=== PATIENT | female | born 1980 | race Hispanic/Latino ===

== ENCOUNTER 2017-09-10 22:51 | Emergency (ER) | payer BC, OTHER ==
[~2017-09-10] VITALS: Ht 162.6 cm; Wt 75.4 kg
[2017-09-10] MEDS ORDERED: KETOROLAC TROMETHAMINE 30 MG/ML VIAL IV STA (23:07)
[2017-09-10] MEDS ORDERED: ONDANSETRON HCL INJ 2 MG/ML VIAL IV STA (23:11)
[2017-09-10] MEDS ORDERED: FENTANYL CITRATE/PF 100MCG/2 ML INJ IV ONE (23:15)
[2017-09-10] MEDS ORDERED: SODIUM CHLORIDE 0.9% 1000ML 1,000 ML IV SCH (23:15)
[2017-09-11] MEDS ORDERED: HYDROCODONE/APAP 5MG-325MG TAB PO ONE (01:30)
[2017-09-11 01:32] VITALS: BP 120/78
== END 2017-09-11 02:01 | disposition home or self-care (01) ==
LOC: FSED 22:51
DX: R10.31 Right lower quadrant pain (principal); R11.0 Nausea; K52.9 Noninfective gastroenteritis and colitis, unspecified
CPT/HCPCS: 74178; 80053; 81003; 85025; 96374; 96375; 96376; 99284; J1885; J2405

== ENCOUNTER 2018-05-29 20:06 | Emergency (ER) | payer BC, OTHER ==
[~2018-05-29] VITALS: Ht 162.6 cm; Wt 72.6 kg
--- OUTSIDE RECORDS SUMMARY | 2018-05-29 20:09 | XMS REPORT | Continuity of Care Document ---
Author Author [facility] Interface Address Unknown Phone Unavailable Problems Problem Status Onset Date Classification Date Reported Comments Source Medications Medication Details Route Status Patient Instructions Ordering Provider Order Date Source Allergies, Adverse Reactions, Alerts Substance Category Reaction Severity Reaction type Status Date Reported Comments Source Morphine Skin Rash/Hives Intermediate Allergy to Substance Active 05/26/2015 [facility] Immunizations Immunization Date Given Site Status Last Updated Comments Source Results Order Name Results Value Reference Range Date Interpretation Comments Source Vital Signs Vital Sign Value Date Comments Source Encounters Location Location Details Encounter Type Encounter Number Reason For Visit Attending Provider ADM Date DC Date Status Source Departed Emergency Room [id number] BLANCA CHRISTIAN MD 09/10/2017 09/11/2017 [facility] Departed Emergency Room [id number] KACIE AYALA MD 12/11/2017 12/11/2017 [facility] Procedures Procedure Code Date Perfomer Comments Source
--- OUTSIDE RECORDS SUMMARY | 2018-05-29 20:09 | XMS REPORT ---
Author [facility] Address Unknown Phone Unavailable Care Team Providers Care Monotype Caster Name Role Phone Megan AYALA Unavailable Unavailable Payers Payer Name Policy Type Policy Number Effective Date Expiration Date Problems This patient has no known problems. Allergies, Adverse Reactions, Alerts Allergy Name Allergy Type Status Severity Reaction(s) Onset Date Inactive Date Treating Clinician Comments No Known Allergies DA Active U 2018-01-20 00:00:00 morphine DA Active SV 2016-08-07 00:00:00 Medications This patient has no known medications. Results Test Description Test Time Test Comments Text Results Atomic Results Result Comments CT ABD/PEL WO CONTRAST-HOPD 2017-12-11 17:36:00 [place] [address] Patient Name: NEDRA CARRASQUILLO MR #: [id number] : 1980 Age/Sex: 36/F Req #: [id number] Adm Physician: Ordered by: KACIE AYALA MD Report #: [id number] Location: [facility] Room/Bed: Procedure: HOPD/CT ABD/PEL WO CONTRAST- HOPD Exam Date: 12/11/17 Exam Time: 1739 REPORT STATUS: Signed EXAMINATION: CT of the abdomen and pelvis without contrast. TECHNIQUE: Helical CT images of the abdomen and pelvis were performed from the lung bases to the lesser trochanters. No intravenous contrast was given per protocol. Coronal and sagittal reformatted images were obtained. Dose modulation, iterative reconstruction, and/or weight based adjustment of the mA/kV was utilized to reduce the radiation dose to as low as reasonably achievable. COMPARISON: None. CLINICAL HISTORY:Nausea and vomiting DISCUSSION: ABSENCE OF INTRAVENOUS CONTRAST DECREASES SENSITIVITY FOR DETECTION OF FOCAL LESIONS AND VASCULAR PATHOLOGY. ABDOMEN/PELVIS: LOWER THORAX: Unremarkable. HEPATOBILIARY:No focal hepatic lesions. No ductal dilatation. Cholecystectomy. SPLEEN: No splenomegaly. PANCREAS: No focal masses or ductal dilatation. ADRENALS: No adrenal nodules. KIDNEYS/URETERS: Punctate renal calculi in the inferior left kidney. Hyperdense papilla. PELVIC ORGANS/BLADDER: Bladder is decompressed. Partial hysterectomy. PERITONEUM/RETROPERITONEUM: No free air or fluid. LYMPH NODES: No intra-abdominal,retroperitoneal, pelvic or inguinal lymphadenopathy. VESSELS: Evaluation. GI TRACT: Prior gastric bypass. No distention or wall thickening. Appendix is normal. BONES AND SOFT TISSUES: No bony destructive lesions. No soft tissue abn ormalities. IMPRESSION: No acute CT finding. Punctate left renal calculi, nonobstructing. Postsurgical change from gastric bypass, cholecystectomy, and partial hysterectomy. Signed by: Dr. Fortino Rosas M.D. on 12/11/2017 5:40 PM Dictated By: FORTINO ROSAS MD 39 Transcribed By: BRADEN on 12/11/171739 COPY TO: KACIE AYALA MD
[2018-05-29] MEDS ORDERED: SODIUM CHLORIDE 0.9% 1000ML 1,000 ML IV SCH (20:30)
[2018-05-29] MEDS ORDERED: ONDANSETRON HCL INJ 2MG/ML 2ML 2 MG/ML VIAL IV ONE (21:00)
[2018-05-29] MEDS ORDERED: KETOROLAC TROMETHAMINE 30 MG/ML VIAL IV ONE (21:00)
[2018-05-29] MEDS ORDERED: DIPHENHYDRAMINE HCL INJ 50 MG/ML VIAL IV ONE (21:30)
--- NOTE | 2018-05-29 21:32 | NUR ---
PT NOTED TO HAVE RED RAISED RASH AROUND IV SITE AFTER ZOFRAN ADMIN; NEW ORDERS FOR BENADRYL IV PER ER MD
[2018-05-29] MEDS ORDERED: POTASSIUM CHLORIDE 40 MEQ in SODIUM CHLORIDE 0.9% 1000ML 1,000 ML IV SCH (22:00)
[2018-05-30] MEDS ORDERED: POTASSIUM CHLORIDE 20 MEQ TAB CR PO STA (00:05)
[2018-05-30 00:20] VITALS: BP 124/73
== END 2018-05-30 00:30 | disposition home or self-care (01) ==
LOC: FSED 20:06
DX: R11.2 Nausea with vomiting, unspecified (principal); B34.9 Viral infection, unspecified; K52.9 Noninfective gastroenteritis and colitis, unspecified
CPT/HCPCS: 80053; 81003; 81025; 85025; 87400; 99284; J1200; J1885; J2405; J3480; J7030

== ENCOUNTER 2018-11-20 14:36 | Emergency (ER) | payer OTHER ==
[~2018-11-20] VITALS: Ht 162.6 cm; Wt 72.6 kg
--- OUTSIDE RECORDS SUMMARY | 2018-11-20 14:39 | XMS REPORT | Continuity of Care Document ---
Author Author [facility] Address Unknown Phone Unavailable Care Team Providers Care Elementary Instructional Coach Name Role Phone [employer] Unavailable Unavailable Problems No Data Provided for This Section Medications No Data Provided for This Section Allergies, Adverse Reactions, Alerts Substance Category Reaction Severity Reaction type Status Date Reported Comments Source Morphine Skin Rash/Hives Intermediate Allergy to Substance Active 05/26/2015 [facility] Immunizations No Data Provided for This Section Results No Data Provided for This Section Pathology Reports No Data Provided for This Section Diagnostic Reports No Data Provided for This Section Consultation Notes No Data Provided for This Section Discharge Summaries No Data Provided for This Section History and Physicals No Data Provided for This Section Vital Signs No Data Provided for This Section Encounters Location Location Details Encounter Type Encounter Number Reason For Visit Attending Provider ADM Date DC Date Status Source Departed Emergency Room [id number] BLANCA CHRISTIAN MD 09/10/2017 09/11/2017 [facility] Departed Emergency Room [id number] KACIE AYALA MD 12/11/2017 12/11/2017 [facility] Departed Emergency Room [id number] APRIL CAMERON MD 05/29/2018 05/30/2018 [facility] Procedures No Data Provided for This Section Assessment and Plan No Data Provided for This Section Plan of Care Plan of Care Date Source Discharge Date 05/30/18 12:30am Disposition HOME, SELF-CARE Condition at Discharge Stable Instructions/Education Provided Viral Syndrome - Adult Forms Provided Work/School Excuse Prescriptions See Medication Section Referrals LIBERTY SHEN MD Address: [address] [place] [id number] Additional Instructions/Education REST; TAKE MEDICATION PRESCRIBED; FOLLOW UP WITH YOUR PCP; DRINK PLENTY OF WATER; 05/30/2018 [facility] Discharge Date 12/11/17 6:08pm Disposition HOME, SELF-CARE Condition at Discharge Stable Instructions/Education Provided Vomiting - Adult Forms Provided Work/School Excuse Prescriptions See Medication Section Referrals LIBERTY SHEN MD Address: [address] [place] [address] [address] [place] [address] Additional Instructions/Education DISCHARGE INSTRUCTIONS No strenuous activity for two days. Drink plenty of fluids. Take clear liquids only. Warnings: GENERAL WARNINGS: Return or contact your physician immediately if your condition worsens or changes unexpectedly, if not improving as expected, or if other problems arise. SPECIFICALLY, return for continued pain in the abdomen or vomiting; or if there is no improvement in the pain in the abdomen or vomiting. Prescription Medications: Zofran (orally disintegrating tablets) 4 mg: take 1 orally every 6 hours as needed for nausea and vomiting. Dispense thirty (30). No refill. Pepcid 40 mg: take 1 orally at bedtime. Dispense twenty (20). No refills. Bentyl 10 mg capsules: take 1 orally every 6 hours as needed for abdominal cramps or abdominal discomfort. Dispense thirty (30). No refill. Tylenol with Codeine Tylenol #3 (30 mg / 300 mg) : take 1 tablet orally every 6 hours as needed for acute pain. Dispense thirty (30). No refill. (max daily dose=) . Promethazine Tablets 25 mg: take 1 tablet orally every 6 hours as needed for nausea and vomiting. Dispense thirty (30). No refill. Follow-up: Follow up with doctor in two days if not better. Call for an appointment. Understanding of the discharge instructions verbalized by patient and family. 12/11/2017 [facility] Social History Social History Date Source Smoking Status Start Date Stop Date Never Smoker 05/30/2018 [facility] Family History No Data Provided for This Section Advance Directives Order Name Results Value Date Source Advance Directives Advance Directives Directive Response Recorded Date/Time Does the patient have an advance directive? No 05/26/15 3:54am Do you have a Directive to Physician? No 05/30/18 12:32am Do you have a Medical Power of Cover Making Machine Operator? No 05/30/18 12:32am Do you have an out of hospital Do Not Resuscitate Order? No 05/30/18 12:32am Do you have any special needs we should be aware of? No 05/30/18 12:32am Do you have a support person here with you today? Yes 05/30/18 12:32am Did patient receive Notice of Privacy Practices? Yes 05/30/18 12:32am Did patient receive patient rights and responsibilities? Yes 05/30/18 12:32am 05/30/2018 [facility] Advance Directives Advance Directives Directive Response Recorded Date/Time Does the patient have an advance directive? No 05/26/15 3:54am If yes, is advance directive on file with [facility]? No 05/26/15 3:54am If not on file with [facility] will patient provide a copy? No 05/26/15 3:54am Do you have a Directive to Physician? No 12/11/17 5:55pm Do you have a Medical Power of Cover Making Machine Operator? No 12/11/17 5:55pm Do you have an out of hospital Do Not Resuscitate Order? No 12/11/17 5:55pm Do you have any special needs we should be aware of? No 12/11/17 5:55pm Do you have a support person here with you today? Yes 12/11/17 5:55pm Did patient receive Notice of Privacy Practices? Yes 12/11/17 5:55pm Did patient receive patient rights and responsibilities? Yes 12/11/17 5:55pm 12/11/2017 [facility] Functional Status No Data Provided for This Section
[2018-11-20] MEDS ORDERED: SODIUM CHLORIDE 0.9% 1000ML 1,000 ML IV STA (15:02)
[2018-11-20] MEDS ORDERED: KETOROLAC TROMETHAMINE 30 MG/ML VIAL ONE (15:12)
[2018-11-20] MEDS ORDERED: SODIUM CHLORIDE 0.9% 1000ML 1,000 ML ONE (15:12)
[2018-11-20] MEDS ORDERED: PROMETHAZINE HCL (IM) 25 MG/ML VIAL ONE (15:13)
[2018-11-20] MEDS ORDERED: FAMOTIDINE 20 MG/2 ML VIAL IV ONE ×2 (15:13→15:15)
[2018-11-20] MEDS ORDERED: KETOROLAC TROMETHAMINE 30 MG/ML VIAL IV ONE (15:15)
[2018-11-20] MEDS ORDERED: PROMETHAZINE 25MG/ NS 50ML (IV) IV ONE (15:15)
--- NOTE | 2018-11-20 16:46 | NUR ---
PT WITH CBC AND UA FROM TODAY AT [facility] DR MCKNIGHT BOTH COMPLETELY NORMAL. PT STATES SHE DOESN'T UNDERSTAND WHY SHE "ALWAYS HAVE SO MUCH PAIN." PT REQUEST MORE PAIN MEDS. PT STATES, "I DON'T FEEL NO BETTER FROM THESE MEDICINES." PT STATES PREVIOUS TESTING NORMAL WELL. PT ASKED IF ANY COMPLICATIONS FROM BARIATRIC SX AND PT ISN'T SURE OF DR NAME OR WHERE SX DONE.
--- NOTE | 2018-11-20 17:35 | Diagnostic Imaging Report ---
CT of the abdomen and pelvis, with contrast, 11/20/2018. History: Back pain. Comparison: 12/11/2017. Technique: Multidetector CT scanning of the abdomen and pelvis was performed from the level of the lung bases to the inferior pubic rami after intravenous and oral administration of contrast. Coronal and sagittal multiplanar reformations were obtained. RADIATION DOSE: Total DLP: 676 mGy*cm Dose modulation, iterative reconstruction, and/or weight based adjustment of the mA/kV was utilized to reduce the radiation dose to as low as reasonably achievable. Discussion: LUNG BASES: No visualized abnormalities. Breast implants are again noted. ABDOMEN: Cholecystectomy clips are present. The liver, biliary tree, spleen, pancreas, adrenal glands, and kidneys are unremarkable. Punctate calcification is again seen in the left kidney without evidence of hydronephrosis. The hepatic vein, portal vein, and splenic vein are patent. The abdominal aorta is within normal limits for size. Suture material is again seen along the stomach consistent with prior gastric bypass. There is no bowel dilatation. The appendix is visualized and is normal. There is no evidence of adenopathy or free fluid. PELVIS: The bladder is unremarkable. The uterus is not visualized. There is no evidence of free fluid or adenopathy. BONES AND SOFT TISSUES: No acute abnormality. IMPRESSION: No acute findings. Status post cholecystectomy, gastric bypass, and hysterectomy. Signed by: Saurav Taylor on 11/20/2018 5:31 PM
== END 2018-11-20 17:45 | disposition home or self-care (01) ==
LOC: FSED 14:36
DX: R10.32 Left lower quadrant pain (principal); R10.12 Left upper quadrant pain; N30.90 Cystitis, unspecified without hematuria
CPT/HCPCS: 74176; 81003; 81025; 99284; J1885; J2550; J7030

== ENCOUNTER 2019-05-19 21:47 | Emergency (ER) | payer OTHER ==
[~2019-05-19] VITALS: Ht 162.6 cm; Wt 72.6 kg
[2019-05-19] MEDS ORDERED: ONDANSETRON HCL INJ 2MG/ML 2ML 2 MG/ML VIAL IV STA (22:51)
[2019-05-19] MEDS ORDERED: MORPHINE SULFATE 2 MG/ML SYR 1ML IV STA (22:51)
[2019-05-19] MEDS ORDERED: KETOROLAC TROMETHAMINE 30 MG/ML VIAL IV STA (22:51)
[2019-05-20] MEDS ORDERED: MORPHINE SULFATE INJ 4 MG/ML INJ 1ML ONE (00:21)
[2019-05-20] MEDS ORDERED: ONDANSETRON HCL INJ 2MG/ML 2ML 2 MG/ML VIAL ONE (00:22)
[2019-05-20] MEDS ORDERED: KETOROLAC TROMETHAMINE 30 MG/ML VIAL ONE (00:22)
[2019-05-20] MEDS ORDERED: ULTRAM 50MG50 MG PO (00:51)
[2019-05-20] MEDS ORDERED: ZOFRAN4 MG SL (00:51)
--- NOTE | 2019-05-20 01:31 | Diagnostic Imaging Report ---
EXAM: CT Abdomen and Pelvis WITHOUT contrast INDICATION: Right flank pain COMPARISON: Abdominal CT 11/20/2018 TECHNIQUE: Abdomen and pelvis were scanned utilizing a multidetector helical scanner from the lung base to the pubic symphysis without administration of IV contrast. Absence of intravenous contrast decreases sensitivity for detection of focal lesions and vascular pathology. Coronal and sagittal reformations were obtained. Routine protocol was performed. IV CONTRAST: None ORAL CONTRAST: None COMPLICATIONS: None RADIATION DOSE: Total DLP: 848 mGy*cm Estimated effective dose: (DLP x 0.015 x size factor) mSv CTDIvol has been reviewed. It is below the limits set by the Radiation Protocol Committee (RPC). Dose modulation, iterative reconstruction, and/or weight based adjustment of the mA/kV was utilized to reduce the radiation dose to as low as reasonably achievable. FINDINGS: LINES and TUBES: None. LOWER THORAX: Unremarkable HEPATOBILIARY: No focal hepatic lesions. No biliary ductal dilation. GALLBLADDER: There are cholecystectomy clips. SPLEEN: No splenomegaly. PANCREAS: No focal masses or ductal dilatation. ADRENALS: No adrenal nodules KIDNEYS/URETERS: No hydronephrosis. No cystic or solid mass lesions. No stones. Mild medullary pyramidal calcinosis. Punctate nonobstructive bilateral renal calculi. GI TRACT: No abnormal distention, wall thickening, or evidence of bowel obstruction. Mild wall thickening of the gastric antrum. Gastrectomy surgical changes intact. Appendix is normal. PELVIC ORGANS/BLADDER: Hysterectomy. No adnexal masses. LYMPH NODES: No lymphadenopathy. VESSELS: Unremarkable. PERITONEUM / RETROPERITONEUM: No free air or fluid. BONES: Unremarkable. SOFT TISSUES: Breast implants. IMPRESSION: Subtle findings which can be seen with antral gastritis. Punctate nonobstructive bilateral renal calculi and mild medullary pyramidal calcinosis. Signed by: Jayant Medina DO on 05/20/2019 1:29 AM
== END 2019-05-20 01:41 | disposition home or self-care (01) ==
LOC: FSED 21:47
DX: R10.31 Right lower quadrant pain (principal); R10.11 Right upper quadrant pain; R11.2 Nausea with vomiting, unspecified; M54.5 Low back pain; N20.0 Calculus of kidney
CPT/HCPCS: 74176; 80053; 81003; 85025; 99283; J1885; J2270; J2405

== ENCOUNTER 2019-09-24 02:36 | Emergency (ER) | payer OTHER ==
[~2019-09-24] VITALS: Ht 162.6 cm; Wt 72.6 kg
[~2019-09-24 02:36] MED LIST: ULTRAM 50MG50 MG PO; ZOFRAN4 MG SL
--- NOTE | 2019-09-24 03:16 | Emergency Department Note ---
History of Present Illnes History of Present Illness Chief Complaint: COVID PUI History of Present Illness This is a 38 year old female c/o URI symptoms for 1 day, positive for covid, she has hx of chronic kidney and liver dz. taking tramadol . Historian: Patient Arrival Mode: Car Oil Well Gun Perforator Operator Required: No Onset (how long ago): day(s) Radiation: Reports non-radiation Severity: mild Onset quality: gradual Progression: unchanged Chronicity: new Relieving factors: none Exacerbating factors: none Associated symptoms: Reports cough, Reports malaise Treatments prior to arrival: none Past Medical/Family History Physician Review I have reviewed the patient's past medical and family history. Any updates have been documented here. Past Medical History Recent Fever: No Clinical Suspicion of Infectio: No New/Unexplained Change in Ment: No Past Medical History: Kidney Stones, UTI's Other Medical History: history of kidney infections Past Surgical History: Cholecysctectomy, Hysterectomy, Bariatric Surgery Other Surgery: GASTRIC SLEEVE AND BREAST IMPLANTS Social History Smoking Cessation: Never Smoker Any Illegal Drug Use: No TB Exposure/Symptoms: No Physically hurt or threatened: No Family History Family history of heart diseas: No Other Last Tetanus: UNK Any Pre-Existing Lines (PICC,: No Review of Systems Review of Systems Constitutional: Reports no symptoms, Reports as per HPI, Reports malaise EENTM: Reports no symptoms Cardiovascular: Reports no symptoms Respiratory: Reports as per HPI, Reports chest congestion, Reports cough Gastrointestinal: Reports no symptoms Genitourinary: Reports no symptoms Musculoskeletal: Reports no symptoms Integumentary: Reports no symptoms Neurological: Reports no symptoms Psychological: Reports no symptoms Endocrine: Reports no symptoms Hematological/Lymphatic: Reports no symptoms Physical Exam Related Data Allergies: Coded Allergies: No Known Allergies (Unverified , 05/29/18) Physical Exam CONSTITUTIONAL Constitutional: Present well-developed, Present well-nourished HENT HENT: Present normocephalic, Present atraumatic, Present oropharynx clear/moist, Present nose normal HENT L/R: Present left ext ear normal, Present right ext ear normal EYES Eyes: Reports PERRL, Reports conjunctivae normal NECK Neck: Present ROM normal PULMONARY Pulmonary: Present effort normal, Present breath sounds normal CARDIOVASCULAR Cardiovascular: Present regular rhythm, Present heart sounds normal, Present ca pillary refill normal, Present normal rate GASTROINTESTINAL Abdominal: Present soft, Present nontender, Present bowel sounds normal GENITOURINARY Genitourinary: Present exam deferred SKIN Skin: Present warm, Present dry MUSCULOSKELETAL Musculoskeletal: Present ROM normal NEUROLOGICAL Neurological: Present alert, Present oriented x 3, Present no gross motor or sensory deficits PSYCHOLOGICAL Psychological: Present mood/affect normal, Present judgement normal Results Laboratory Lab results reviewed: Yes Assessment & Plan Medical Decision Making MDM mild symptoms, high risk for covid 19 Assessment & Plan Final Impression: (1) COVID-19 (2) Upper respiratory infection Depart Disposition: HOME, SELF-USP Meds Active Scripts Ondansetron Hcl* (ZOFRAN*) 4 Mg Tablet, 4 MG SL Q6H PRN for NAUSEA, #14 MG 0 Refills Prov:NITZA MCINTOSH MD 05/20/19 Tramadol Hcl* (ULTRAM 50MG*) 50 Mg Tab, 50 MG PO Q6H PRN for PAIN, #15 TAB 0 Refills Prov:NITZA MCINTOSH MD 05/20/19 Physician Attestation Provider Attestation mild illness, safe to d/c with expected management MATTY KRAUSE MD Sep 24, 2019 03:16
== END 2019-09-24 04:45 | disposition home or self-care (01) ==
LOC: FSED 02:36
DX: R05 Cough (principal); U07.1 COVID-19; J06.9 Acute upper respiratory infection, unspecified; Z98.84 Bariatric surgery status
CPT/HCPCS: 87635; 99282

== ENCOUNTER 2020-11-27 10:20 | Emergency (ER) | payer MEDICARE ==
[~2020-11-27] VITALS: Ht 162.6 cm; Wt 76.7 kg
[2020-11-27] MEDS ORDERED: LIDOCAINE HCL 2% LOCAL 20 ML VIAL ONE (10:42)
[2020-11-27] MEDS ORDERED: TETANUS/DIPHTHERIA TOX ADULT 0.5 ML SYR ONE (10:45)
[2020-11-27] MEDS ORDERED: BACITRACIN ZINC 0.9GM TP ONE ×2 (10:45→10:53)
[2020-11-27] MEDS ORDERED: TETANUS/DIPHTHERIA TOX ADULT 0.5 ML SYR IM ONE (10:45)
[2020-11-27] MEDS ORDERED: ONDANSETRON HCL 4 MG ORAL DISINTEGRATING TAB ONE (10:45)
[2020-11-27] MEDS ORDERED: ONDANSETRON HCL 4 MG ORAL DISINTEGRATING TAB PO ONE (10:45)
[2020-11-27] MEDS ORDERED: LIDOCAINE HCL 2% LOCAL 20 ML VIAL INJ ONE (10:45)
[2020-11-27] MEDS ORDERED: ONDANSETRON HCL INJ 2MG/ML 2ML 2 MG/ML VIAL IV NR (11:15)
[2020-11-27] MEDS ORDERED: SODIUM CHLORIDE 0.9% 1000ML 1,000 ML IV SCH (11:15)
[2020-11-27] MEDS ORDERED: SODIUM CHLORIDE 0.9% 1000ML 1,000 ML ONE (11:31)
[2020-11-27] MEDS ORDERED: ONDANSETRON HCL INJ 2MG/ML 2ML 2 MG/ML VIAL ONE (11:31)
[2020-11-27] MEDS ORDERED: KETOROLAC TROMETHAMINE 30 MG/ML VIAL IV NR (12:00)
[2020-11-27] MEDS ORDERED: KETOROLAC TROMETHAMINE 30 MG/ML VIAL ONE (12:06)
[2020-11-27] MEDS ORDERED: HYDROCODONE/APAP 5MG-325MG TAB PO NR (12:30)
== END 2020-11-27 13:37 | disposition home or self-care (01) ==
LOC: FSED 10:40
DX: R55 Syncope and collapse (principal); S01.112A Laceration without foreign body of left eyelid and periocular area, initial encounter; W01.0XXA Fall on same level from slipping, tripping and stumbling without subsequent striking against object, initial encounter; Y92.008 Other place in unspecified non-institutional (private) residence as the place of occurrence of the external cause; Z98.84 Bariatric surgery status
CPT/HCPCS: 12011; 70450; 71046; 82948; 90471; 90714; 93005; 96372; 96374; 96375; 99284; J1885; J2001; J2405; J7030; Q0162

== ENCOUNTER 2020-12-03 07:34 | Emergency (ER) | payer SELFPAY ==
[~2020-12-03] VITALS: Ht 162.6 cm; Wt 72.6 kg
== END 2020-12-03 08:02 | disposition home or self-care (01) ==
LOC: FSED 08:01
DX: Z48.02 Encounter for removal of sutures (principal)
CPT/HCPCS: S0630

== ENCOUNTER 2021-09-06 17:04 | Emergency (ER) | payer OTHER ==
[~2021-09-06] VITALS: Ht 162.6 cm; Wt 74.8 kg
[2021-09-06] MEDS ORDERED: KETOROLAC TROMETHAMINE 30 MG/ML VIAL IV STA (17:37)
[2021-09-06] MEDS ORDERED: KETOROLAC TROMETHAMINE 30 MG/ML VIAL ONE (17:58)
[2021-09-06] MEDS ORDERED: KETOROLAC TROMETHAMINE 30 MG/ML VIAL IM STA (18:09)
[2021-09-06] MEDS ORDERED: ONDANSETRON HCL 4 MG ORAL DISINTEGRATING TAB PO ONE (18:15)
[2021-09-06] MEDS ORDERED: ONDANSETRON HCL 4 MG ORAL DISINTEGRATING TAB ONE (18:16)
[2021-09-06] MEDS ORDERED: KETOROLAC TROME10 MG PO (19:24)
[2021-09-06 19:36] VITALS: BP 110/78
== END 2021-09-06 19:40 | disposition home or self-care (01) ==
LOC: FSED 17:31
DX: R10.30 Lower abdominal pain, unspecified (principal); N83.202 Unspecified ovarian cyst, left side; Z87.442 Personal history of urinary calculi; Z98.84 Bariatric surgery status
CPT/HCPCS: 74176; 80053; 81003; 85025; 99283; J1885; Q0162